=== PATIENT | female | born 1990 | race Caucasian/White ===

== ENCOUNTER 2018-07-18 16:29 | Inpatient (IN) | payer BC ==
[2018-07-18] MEDS ORDERED: Sodium Chloride 0.9% 10 ML Syringe FLUSH PRN (18:08)
[2018-07-18] MEDS ORDERED: Acetaminophen 325 MG Tab PO PRN (18:08)
[2018-07-18] MEDS ORDERED: Nalbuphine 20 MG/ML 1 ML Syringe IVPUSH PRN (18:08)
[2018-07-18] MEDS ORDERED: Oxytocin/Lactated Ringers 10 UNIT/1,000 ML BAG IV SCH ×2 (18:15)
--- NOTE | 2018-07-18 18:21 | PCM.LDHP ---
L&D History of Present Illness - General Date of Service: 07/18/18 Admit Problem/Dx: Patient Status Order with Admit Dx/Problem 07/18/18 18:08 Patient Status [ADT] Routine Admission Diagnosis/Problem Admission Diagnosis/Problem Placental abruption in third trimester Source of Information: Patient History Limitations: Reports: No Limitations - History of Present Illness Introduction:: Eden Glasgow is a 27-year-old at 38 weeks 4 days by LMP consistent with 13 week ultrasound ([facility] 07/28/2018) who presents for medical induction of labor in the setting of small placental abruption with reassuring monitoring. Patient was seen in the clinic today after she had vaginal bleeding after sexual intercourse last evening. Reports that she had moderate amount of clots at that time and then today has had continuous spotting. She was seen in the emergency department last night and was told that everything was okay for the and had her cervix checked by the provider and was told that she was 2 cm. She reports that today she has had continued spotting without any abdominal pain or cramping. She reports that she did have some increased amount of mucus and tissue that was passed with the bleeding as well. She reports that she has had decreased movement last night but has had good movement today. On exam in the office she was 4/80/-2/soft/anterior with what felt like intact membranes. Timing/Duration: Reports: sudden onset (vaginal bleeding), constant/continuous ( since starting of bleeding) Location, : Reports: Pelvic, Uterus Quality: Reports: Pressure Severity: Moderate Improves with: Reports: None Worsens with: Reports: None Associated Symptoms: Reports: vaginal bleeding, vaginal tissue, moderate amount. Denies: vaginal discharge, vaginal fluid Present Illness Comments:: Eden Cameron is a 27-year-old at 38 weeks 4 days by LMP consistent with 13 week ultrasound presenting for induction of labor in the setting of asymptomatic placental abruption with small amount of bleeding and reassuring monitoring. She has had routine care throughout the initially with myself but then transferred care to [place] for several months but then returned to my care and had regular care since transfer at 27 weeks gestational age. Her had overall been uncomplicated until last evening and into today when she had vaginal bleeding after intercourse. She received the flu shot on 04/30/2018 and TDaP on 04/30/2018. labs Blood type: A+ Antibody screen: Negative First trimester hematocrit/hemoglobin: 35.7%/12.6 Platelets: 231 Rubella status: Immune Hepatitis B surface antigen: Negative RPR: Negative HIV: Negative Gonorrhea: Negative Chlamydia: Negative Anatomy ultrasound: Normal anatomy ultrasound, anterior placenta, no previa One hour glucose tolerance test: 95 Second trimester hematocrit/hemoglobin: 36.8%/12.6 Platelets: 242 GBS status: Negative This has been complicated by: * Asymptomatic placental abruption at 38 weeks following intercourse. Infant with reassuring and reactive monitoring in clinic and decision made to proceed with induction due to remote residence from facility and small amount of continued bleeding * Lives remote from facility in [place] Past Medical History - Past Surgical History HEENT Surgical History: Reports: Naso-Sinus Surgery (septum repair), Tonsillectomy Female Surgical History: Reports: Breast Implant Social & Family History - Tobacco Use Smoking Status *Q: Never Smoker Tobacco Use Within Last Twelve Months: No - Tobacco Core Measures Tobacco Use/Smoking Within Last 30 Days: No Smokeless Tobacco Use in Last 30 Days: No - Alcohol Use Alcohol Use History: No - Recreational Drug Use Recreational Drug Use: No Drug Use in Last 12 Months: No - Living Situation & Occupation Living situation: Reports: Single, with Significant Other H&P Review of Systems - Review of Systems: Review Of Systems: See Below General: Denies: Fever, Chills, Malaise, Fatigue HEENT: Reports: Glasses. Denies: Rhinitis, Post Nasal Drip, Sinus Congestion, Sore Throat, Visual Changes Pulmonary: Denies: Shortness of Breath, Wheezing, Cough Cardiovascular: Denies: Chest Pain, Palpitations, Dyspnea on Exertion Gastrointestinal: Denies: Abdominal Pain, Constipation, Diarrhea, Nausea, Vomiting Genitourinary: Reports: Other (vaginal bleeding). Denies: Dysuria, Frequency, Burning, Pain, Urgency Musculoskeletal: Reports: Back Pain (and hip pain of ) Skin: Denies: Rash, Lesions Psychiatric: Denies: Depression, Anxiety Neurological: Denies: Headache Hematologic/Lymphatic: Denies: Anemia L&D Exam - Exam Exam: See Below - OB Specific Contraction Duration (sec): 60-90 Contraction Frequency (min): 4-9 Contraction Intensity: Moderate Movement: Active Heart Tones: Present Heart Tones per Min: 140 (+15 x 15 accelerations, occasional variable decelerations) Heart Rate (FHR) Variability: Moderate (6-25 bmp) Presentation: Vertex Estimated Weight: 7-7.5 pounds by Sarbjit's - Jenkins Score Jenkins Score Cervix Position: Anterior Jenkins Score Consistency: Soft Jenkins Score Effacement: >80% (80%) Jenkins Score Dilation: 3-4 cm (4 cm) Jenkins Score Infant's Station: -2 Jenkins Score Total: 10 - Exam General: Alert, Oriented HEENT: Conjunctiva Clear, EOMI Neck: Supple, Trachea Midline Lungs: Clear to Auscultation, Normal Respiratory Effort Cardiovascular: Regular Rate, Regular Rhythm GI/Abdominal Exam: Soft, Non-Tender, No Distention, Other (Gravid). No: Guarding, Rigid, Rebound Genitourinary: Normal external exam, Vaginal bleeding (With small amount of blood clot in the vaginal vault coming from the cervical os, small amount of bright red bleeding from cervix with Valsalva) Back Exam: Normal Inspection, Full Range of Motion Extremities: Normal Inspection, Pedal Edema (1+) Skin: Warm, Dry, Intact Psychiatric: Alert, Normal Affect, Normal Mood - Problem List (1) 38 weeks gestation of SNOMED Code(s): 56381643 ICD Code: Z3A.38 - 38 WEEKS GESTATION OF Status: Acute Current Visit: Yes (2) Placental abruption SNOMED Code(s): 768315123 ICD Code: O45.90 - PREMATURE SEPARATION OF PLACENTA, UNSP, UNSP TRIMESTER Status: Acute Current Visit: Yes Problem List Initiated/Reviewed/Updated: Yes Orders Last 24hrs: Active Orders 24 hr Category Date Time Status Patient Status [ADT] Routine ADT 07/18/18 18:08 Ordered Activity as Tolerated [RC] PFP Care 07/18/18 18:08 Ordered Communication Order [RC] ASDIRECTED Care 07/18/18 18:08 Ordered Heart Tones [RC] ASDIRECTED Care 07/18/18 18:10 Ordered Non Stress Test [RC] PER UNIT ROUTINE Care 07/18/18 18:08 Ordered Notify Provider Vital Signs [RC] PRN Care 07/18/18 18:10 Ordered Notify Provider [RC] PFP Care 07/18/18 18:08 Ordered Notify Provider [RC] PRN Care 07/18/18 18:08 Ordered Peripheral IV Care [RC] . DIRECTED Care 07/18/18 18:10 Ordered Pump Management, Intrathecal [RC] ASDIRECTED Care 07/18/18 18:10 Ordered Vital Signs [RC] PER UNIT ROUTINE Care 07/18/18 18:08 Ordered Regular Diet [DIET] Diet 07/18/18 Dinner Ordered CBC WITH AUTO DIFF [HEME] Routine Lab 07/18/18 18:08 Ordered RAPID PLASMA REAGIN,RPR [CHEM] Routine Lab 07/18/18 18:08 Ordered TYPE AND SCREEN [BBK] Routine Lab 07/18/18 18:08 Ordered Acetaminophen [Tylenol] Med 07/18/18 18:08 Ordered 650 mg PO Q6H PRN Lactated Ringers [Ringers, Lactated] 1,000 ml Med 07/18/18 18:15 Ordered IV ASDIRECTED Nalbuphine [Nubain] Med 07/18/18 18:08 Ordered 10 mg IVPUSH Q2H PRN Oxytocin/Lactated Ringers [Pitocin in LR 10 Units/1,000 Med 07/18/18 18:15 Ordered ML] 10 unit in 1,000 ml IV .CONTINUOUS Oxytocin/Lactated Ringers [Pitocin in LR 10 Units/1,000 Med 07/18/18 18:15 Ordered ML] 10 unit in 1,000 ml IV TITRATE Sodium Chloride 0.9% [Saline Flush] Med 07/18/18 18:08 Ordered 10 ml FLUSH ASDIRECTED PRN Electronic Heart Tones Ext w TOCO [WOMSER] Oth 07/18/18 18:08 Ordered Routine Electronic Heart Tones Internal [WOMSER] Per Unit Oth 07/18/18 18:08 Ordered Routine Peripheral IV Insertion Adult [OM.PC] Routine Oth 07/18/18 18:08 Ordered Resuscitation Status Routine Resus Stat 07/18/18 18:08 Ordered Assessment/Plan Comment:: Refer to observation for induction of labor in the setting of small placental abruption with living remote from facility Start Pitocin for induction of labor Continuous monitoring Place IV and have Lactated Ringer's at 125 ml/hr May have small amounts of regular diet Activity as tolerated May have epidural as desired Plans to breast-feed after delivery CBC, RPR and type and screen. Type and screen for precaution due to increased risk for need for section. Anticipate vaginal delivery unless otherwise indicated Gerson Ledezma M.D. 6:28 PM 07/18/2018
[2018-07-18] MEDS: Lactated Ringers 1,000 ML IV SCH (20:45)
[2018-07-18] MEDS ORDERED: Oxytocin/Lactated Ringers 10 UNIT/1,000 ML BAG IV ONE (21:28)
--- NOTE | 2018-07-18 23:34 | PCM.PNLD ---
Labor Progress Note - VS & Meds Active Medications: Current Medications Acetaminophen (Tylenol) 650 mg PO Q6H PRN PRN Reason: Pain (Mild 1-3) and fever Lactated Ringer's (Ringers, Lactated) 1,000 mls @ 100 mls/hr IV ASDIRECTED TK Last Admin: 07/18/18 20:45 Dose: 100 mls/hr Oxytocin/Lactated Ringer's (Pitocin In Lr 10 Units/1,000 Ml) 10 unit in 1,000 mls @ 12 mls/hr IV TITRATE TK; Protocol Last Titration: 07/18/18 22:20 Dose: 4 munits/min, 24 mls/hr Oxytocin/Lactated Ringer's (Pitocin In Lr 10 Units/1,000 Ml) 10 unit in 1,000 mls @ 100 mls/hr IV .CONTINUOUS TK; Protocol Nalbuphine HCl (Nubain) 10 mg IVPUSH Q2H PRN PRN Reason: pain Sodium Chloride (Saline Flush) 10 ml FLUSH ASDIRECTED PRN PRN Reason: Keep Vein Open Discontinued Medications Oxytocin/Lactated Ringer's (Pitocin In Lr 10 Units/1,000 Ml) Confirm Administered Dose 10 unit in 1,000 mls @ as directed IV .STK-MED ONE Stop: 07/18/18 21:29 Last Admin: 07/18/18 22:44 Dose: Not Given - Uterine Contractions Uterine Monitoring Mode: External Cantril Contraction Frequency (min): 3-5 Contraction Duration (sec): 60-90 Contraction Intensity: Moderate to Strong Uterine Resting Tone: Soft - Monitoring Monitor Mode: Doppler/Auscultation Heart Rate (FHR) Baseline: 135 Heart Rate (FHR) Per Doppler: 135 Heart Rate (FHR) Variability: Moderate (6-25 bmp) Accelerations: Present, 15x15 Decelerations: None Strip Review: Category I - Vaginal Exam Dilation (cm): 4.5 Effacement (Percent): 90 Station: -2 Cervical Position: Anterior Sterile Vaginal Exam Performed By: Gerson Ledezma Vaginal Exam Comment: Artificial rupture of membranes with return of clear fluid mixed with old clot performed with [place]. Mother and tolerated without complications. No additional vaginal bleeding after rupture of membranes. - Labor Progress (Free Text) Labor Progress: Patient progressing after initiation of pitocin for induction of labor. Continue pitocin for induction of labor Monitor vitals Monitor of vaginal bleeding for worsening of suspected placental abruption Patient may have epidural for anesthesia if desired. Anticipate vaginal delivery unless otherwise indicated Gerson Ledezma MD 11:33 PM 07/18/2018
[2018-07-18] MEDS ORDERED: fentaNYL/Bupivacaine-NS 2 MCG/ML-0.125%/PF 100 ML Bag EP SCH (23:45)
[2018-07-18] MEDS ORDERED: fentaNYL 100 MCG/2 ML SDV EPIDUR PRN (23:56)
[2018-07-18] MEDS ORDERED: Ondansetron 4 MG/2 ML SDV IVPUSH PRN (23:56)
[2018-07-18] MEDS ORDERED: diphenhydrAMINE 50 MG/ML SDV IVPUSH PRN (23:56)
[2018-07-18] MEDS ORDERED: ePHEDrine 50 MG/ML SDV IVPUSH PRN (23:56)
[2018-07-19] MEDS: Lactated Ringers 1,000 ML IV SCH (00:03)
--- NOTE | 2018-07-19 00:44 | PCM.PREANE ---
Preanesthetic Assessment - Anesthesia/Transfusion/Family Hx Anesthesia History: Prior Anesthesia Without Reaction Family History of Anesthesia Reaction: No - Review of Systems General: No Symptoms Pulmonary: No Symptoms Cardiovascular: No Symptoms Gastrointestinal: Other (Heart Burn during ) Neurological: No Symptoms Other: Reports: None - Physical Assessment O2 Sat by Pulse Oximetry: 98 Respiratory Rate: 18 Blood Pressure: 111/84 Temperature: 37.1 C Height: 1.6 m Weight: 94.347 kg ASA Class: 2 Mental Status: Alert & Oriented x3 Airway Class: Mallampati = 1 Dentition: Reports: Normal Dentition Thyro-Mental Finger Breadths: 3 Mouth Opening Finger Breadths: 3 ROM/Head Extension: Full Lungs: Clear to Auscultation, Normal Respiratory Effort Cardiovascular: Regular Rate, Regular Rhythm - Lab Values: Laboratory Last Values WBC 11.36 K/mm3 (3.98-10.04) H 07/18/18 18:35 RBC 4.03 M/mm3 (3.98-5.22) 07/18/18 18:35 Hgb 12.7 gm/L (11.2-15.7) 07/18/18 18:35 Hct 37.9 % (34.1-44.9) 07/18/18 18:35 MCV 94.0 fl (79.4-94.8) 07/18/18 18:35 MCH 31.5 pg (25.6-32.2) 07/18/18 18:35 MCHC 33.5 g/dl (32.2-35.5) 07/18/18 18:35 RDW Std Deviation 45.7 fL (36.4-46.3) 07/18/18 18:35 Plt Count 205 K/mm3 (182-369) 07/18/18 18:35 MPV 9.9 fl (9.4-12.3) 07/18/18 18:35 Neut % (Auto) 61.8 % (34.0-71.1) 07/18/18 18:35 Lymph % (Auto) 24.6 % (19.3-51.7) 07/18/18 18:35 Stokes % (Auto) 11.9 % (4.7-12.5) 07/18/18 18:35 Eos % (Auto) 0.6 (0.7-5.8) L 07/18/18 18:35 Baso % (Auto) 0.1 % (0.1-1.2) 07/18/18 18:35 Neut # (Auto) 7.02 K/mm3 (1.56-6.13) H 07/18/18 18:35 Lymph # (Auto) 2.80 K/mm3 (1.18-3.74) 07/18/18 18:35 Stokes # (Auto) 1.35 K/mm3 (0.24-0.36) H 07/18/18 18:35 Eos # (Auto) 0.07 K/mm3 (0.04-0.36) 07/18/18 18:35 Baso # (Auto) 0.01 K/mm3 (0.01-0.08) 07/18/18 18:35 Manual Slide Review Normal smear 07/18/18 18:35 RPR Non-reactive (NONREACTIVE) 07/18/18 18:35 Blood Type A POSITIVE 07/18/18 18:35 Gel Antibody Screen Negative 07/18/18 18:35 - Allergies Allergies/Adverse Reactions: Allergies Allergy/AdvReac Type Severity Reaction Status Date / Time Penicillins Allergy Anaphylactic Verified 07/18/18 21:18 Shock - Acknowledgements Anesthesia Type Planned: Epidural Pt an Appropriate Candidate for the Planned Anesthesia: Yes Alternatives and Risks of Anesthesia Discussed w Pt/Guardian: Yes Pt/Guardian Understands and Agrees with Anesthesia Plan: Yes PreAnesthesia Questionnaire - Past Surgical History HEENT Surgical History: Reports: Naso-Sinus Surgery (septum repair), Tonsillectomy Female Surgical History: Reports: Breast Implant - SUBSTANCE USE Smoking Status *Q: Never Smoker Tobacco Use Within Last Twelve Months: No Recreational Drug Use History: No - CURRENT (IN HOUSE) MEDS Current Meds: Current Medications Acetaminophen (Tylenol) 650 mg PO Q6H PRN PRN Reason: Pain (Mild 1-3) and fever Diphenhydramine HCl (Benadryl) 25 mg IVPUSH Q6H PRN PRN Reason: Pruritis Ephedrine Sulfate (Ephedrine Sulfate) 5 mg IVPUSH ASDIRECTED PRN PRN Reason: Hypotension Fentanyl (Sublimaze) 100 mcg EPIDUR ONETIME PRN PRN Reason: Pain Last Admin: 07/19/18 00:39 Dose: 100 mcg Fentanyl/Bupivacaine HCl (Oiaqfxpn-Hvpjg-Gz 2 Mcg/Ml-0.125%) 100 ml EP ASDIRECTED TK Last Admin: 07/19/18 00:38 Dose: 100 ml Lactated Ringer's (Ringers, Lactated) 1,000 mls @ 100 mls/hr IV ASDIRECTED TK Last Admin: 07/19/18 00:03 Dose: 999 mls/hr Oxytocin/Lactated Ringer's (Pitocin In Lr 10 Units/1,000 Ml) 10 unit in 1,000 mls @ 12 mls/hr IV TITRATE TK; Protocol Last Titration: 07/18/18 23:59 Dose: 0 munits/min, 0 mls/hr Oxytocin/Lactated Ringer's (Pitocin In Lr 10 Units/1,000 Ml) 10 unit in 1,000 mls @ 100 mls/hr IV .CONTINUOUS TK; Protocol Nalbuphine HCl (Nubain) 10 mg IVPUSH Q2H PRN PRN Reason: pain Ondansetron HCl (Zofran) 4 mg IVPUSH ONETIME PRN PRN Reason: Nausea/Vomiting Sodium Chloride (Saline Flush) 10 ml FLUSH ASDIRECTED PRN PRN Reason: Keep Vein Open Discontinued Medications Oxytocin/Lactated Ringer's (Pitocin In Lr 10 Units/1,000 Ml) Confirm Administered Dose 10 unit in 1,000 mls @ as directed IV .STK-MED ONE Stop: 07/18/18 21:29 Last Admin: 07/18/18 22:44 Dose: Not Given
[2018-07-19] MEDS ORDERED: Lidocaine 1.5% with EPINEPHrine 1:200,000 5 ML Amp ONE (02:00)
[2018-07-19] MEDS ORDERED: Bupivacaine 0.25% 10 ML SDV ONE (02:00)
[2018-07-19] MEDS ORDERED: Lidocaine 1% 50 ML MDV ONE (03:37)
--- NOTE | 2018-07-19 04:17 | PCM.DEL ---
L & D Note - General Info Date of Service: 07/19/18 Mother's Due Date: 07/28/18 - Delivery Note Labor: Augmented by ARM, Induced by Oxytocin Cervical Ripening Method: Oxytocin Delivery Outcome: Livebirth Delivery Method: Spontaneous Vaginal Delivery-Single Presentation: Left Occiput Anterior (SABINO) Nuchal Cord: Present (not reduced, delivered through) Anesthesia Type: Epidural, Local Anesthetic: Lidocaine (Xylocaine) 1% Plain Amniotic Fluid Description: Clear Episiotomy Type: None Laceration: 1st Degree (midline perineal and bilateral labial, repaired with 4- 0 vicryl) Suture type: Vicryl Suture size: 4-0 Placenta: Intact (small amount of peripheral abruption noted), Spontaneous Cord: 3 Vessels Estimated Blood Loss: 250 Resuscitation Needed: Yes : Bulb Syringe, Stimulated, Warmed, [place] Used Provider: Gerson Ledezma Score 1 min: 8 Score 5 min: 9 Second Stage Interventions: Reports: Pushing Effectively, Pushing, Pulls Own Legs Back Delivery Comments (Free Text/Narrative):: Stage I: Eden Glasgow was admitted for induction of labor secondary to suspected small placental abruption with small amount of blood clot noted on exam and small amount of bleeding and dilation to 4 cm in the clinic. She was GBS negative. She had artificial rupture membranes with clear fluid She was started on Pitocin for induction of labor. She was given an epidural for anesthesia. The Pitocin was able to be stopped after she received the epidural as she was having regular contractions without it. She progressed to complete and pushing. Stage II: On 07/19/2018 she had a normal vaginal delivery of a live male at 0322. Apgars of 8 & 9. Weight of 3070 g (6 lbs 12.3 oz). Length of 20 inches. There was a single nuchal cord that was not reduced and delivered through. was delivered in SABINO position. The cord was doubly clamped and cut by CASANDRA Becerra student. was placed on mother's abdomen. Stage III: She had a spontaneous delivery of an intact placenta in [place] presentation. On examination of the placenta there was noted to be a small peripheral abruption approximately 10-15% of the placental edge. Three vessel cord. She was given pitocin and fundal massage. She had a first-degree midline perineal laceration that was repaired with 4-0 Vicryl. She also had a first- degree bilateral labial lacerations that were repaired with 4-0 Vicryl. Mom and baby were stable to recovery. EBL of 250 mL. Gerson Ledezma MD 4:09 AM 07/19/2018 Induction Criteria - Jenkins Score Jenkins Score Dilation: 3-4 cm Jenkins Score Effacement: >80% Jenkins Score 's Station: -2 Jenkins Score Consistency: Soft Jenkins Score Cervix Position: Anterior Jenkins Score Total: 10 Jenkins Score Presenting Part: Reports: Cephalic - Induction Gestational Age >/= 39 wks: No Medical Indication: Suspected placental abruption with bleeding and clot noted on exam in the clinic Estimated Pelvis: Reports: Adequate Reassuring Monitoring Strip: Yes Absence of Tachy Systole: Yes - Augmentation Estimated Pelvis: Reports: Adequate Weight Estimated:: Reports: AGA Reassuring Monitoring Strip: Yes Absence of Tachy Systole: Yes - General Info Date of Service: 07/19/18 - Patient Data Vitals - Most Recent: Last Vital Signs Temp 37.1 C 07/19/18 00:44 Pulse 86 07/18/18 18:08 Resp 18 07/19/18 00:44 BP 111/84 07/19/18 00:44 Pulse Ox 98 07/19/18 00:44 Weight - Most Recent: 94.347 kg I&O - Last 24 Hours: Intake & Output 07/18/18 07/18/18 07/19/18 14:59 22:59 06:59 Intake Total 3300 Output Total 300 Balance 3000 Lab Results Last 24 Hours: Laboratory Results - last 24 hr 07/18/18 07/18/18 07/18/18 Range/Units 18:35 18:35 18:35 WBC 11.36 H (3.98-10.04) K/mm3 RBC 4.03 (3.98-5.22) M/mm3 Hgb 12.7 (11.2-15.7) gm/L Hct 37.9 (34.1-44.9) % MCV 94.0 (79.4-94.8) fl MCH 31.5 (25.6-32.2) pg MCHC 33.5 (32.2-35.5) g/dl RDW Std Deviation 45.7 (36.4-46.3) fL Plt Count 205 (182-369) K/mm3 MPV 9.9 (9.4-12.3) fl Neut % (Auto) 61.8 (34.0-71.1) % Lymph % (Auto) 24.6 (19.3-51.7) % [place] % (Auto) 11.9 (4.7-12.5) % Eos % (Auto) 0.6 L (0.7-5.8) Baso % (Auto) 0.1 (0.1-1.2) % Neut # (Auto) 7.02 H (1.56-6.13) K/mm3 Lymph # (Auto) 2.80 (1.18-3.74) K/mm3 [place] # (Auto) 1.35 H (0.24-0.36) K/mm3 Eos # (Auto) 0.07 (0.04-0.36) K/mm3 Baso # (Auto) 0.01 (0.01-0.08) K/mm3 Manual Slide Review Normal smear RPR Non-reactive (NONREACTIVE) Blood Type A POSITIVE Gel Antibody Screen Negative Med Orders - Current: Current Medications Acetaminophen (Tylenol) 650 mg PO Q6H PRN PRN Reason: Pain (Mild 1-3) and fever Diphenhydramine HCl (Benadryl) 25 mg IVPUSH Q6H PRN PRN Reason: Pruritis Ephedrine Sulfate (Ephedrine Sulfate) 5 mg IVPUSH ASDIRECTED PRN PRN Reason: Hypotension Fentanyl (Sublimaze) 100 mcg EPIDUR ONETIME PRN PRN Reason: Pain Last Admin: 07/19/18 00:39 Dose: 100 mcg Fentanyl/Bupivacaine HCl (Abguaypk-Gryjq-Ms 2 Mcg/Ml-0.125%) 100 ml EP ASDIRECTED TK Last Admin: 07/19/18 00:38 Dose: 100 ml Lactated Ringer's (Ringers, Lactated) 1,000 mls @ 100 mls/hr IV ASDIRECTED TK Last Admin: 07/19/18 00:03 Dose: 999 mls/hr Oxytocin/Lactated Ringer's (Pitocin In Lr 10 Units/1,000 Ml) 10 unit in 1,000 mls @ 12 mls/hr IV TITRATE TK; Protocol Last Titration: 07/18/18 23:59 Dose: 0 munits/min, 0 mls/hr Oxytocin/Lactated Ringer's (Pitocin In Lr 10 Units/1,000 Ml) 10 unit in 1,000 mls @ 100 mls/hr IV .CONTINUOUS TK; Protocol Nalbuphine HCl (Nubain) 10 mg IVPUSH Q2H PRN PRN Reason: pain Ondansetron HCl (Zofran) 4 mg IVPUSH ONETIME PRN PRN Reason: Nausea/Vomiting Sodium Chloride (Saline Flush) 10 ml FLUSH ASDIRECTED PRN PRN Reason: Keep Vein Open Discontinued Medications Oxytocin/Lactated Ringer's (Pitocin In Lr 10 Units/1,000 Ml) Confirm Administered Dose 10 unit in 1,000 mls @ as directed IV .STK-MED ONE Stop: 07/18/18 21:29 Last Admin: 07/18/18 22:44 Dose: Not Given Lidocaine HCl (Xylocaine 1%) Confirm Administered Dose 50 ml .ROUTE .STK-MED ONE Stop: 07/19/18 03:38 - Problem List & Annotations (1) 38 weeks gestation of SNOMED Code(s): 73250594 Code(s): Z3A.38 - 38 WEEKS GESTATION OF Status: Acute Current Visit: Yes (2) Placental abruption SNOMED Code(s): 718314251 Code(s): O45.90 - PREMATURE SEPARATION OF PLACENTA, UNSP, UNSP TRIMESTER Status: Acute Current Visit: Yes (3) Vaginal delivery SNOMED Code(s): 261162770 Code(s): O80 - ENCOUNTER FOR FULL-TERM UNCOMPLICATED DELIVERY Status: Acute Current Visit: Yes (4) First degree perineal laceration during delivery SNOMED Code(s): 511916433 Code(s): O70.0 - FIRST DEGREE PERINEAL LACERATION DURING DELIVERY Status: Acute Current Visit: Yes - Problem List Review Problem List Initiated/Reviewed/Updated: Yes - My Orders Last 24 Hours: My Active Orders 07/18/18 18:08 Patient Status [ADT] Routine Activity as Tolerated [RC] PFP Communication Order [RC] ASDIRECTED Notify Provider [RC] PFP Notify Provider [RC] PRN Vital Signs [RC] 09,15,21,03 Acetaminophen [Tylenol] 650 mg PO Q6H PRN Nalbuphine [Nubain] 10 mg IVPUSH Q2H PRN Sodium Chloride 0.9% [Saline Flush] 10 ml FLUSH ASDIRECTED PRN Electronic Heart Tones Ext w TOCO [WOMSER] Routine Electronic Heart Tones Internal [WOMSER] Per Unit Routine Peripheral IV Insertion Adult [OM.PC] Routine Resuscitation Status Routine 07/18/18 18:10 Heart Tones [RC] ASDIRECTED Notify Provider Vital Signs [RC] PRN Peripheral IV Care [RC] . DIRECTED 07/18/18 18:15 Lactated Ringers [Ringers, Lactated] 1,000 ml IV ASDIRECTED Oxytocin/Lactated Ringers [Pitocin in LR 10 Units/1,000 ML] 10 unit in 1,000 ml IV .CONTINUOUS Oxytocin/Lactated Ringers [Pitocin in LR 10 Units/1,000 ML] 10 unit in 1,000 ml IV TITRATE 07/18/18 Dinner Regular Diet [DIET] 07/19/18 04:10 Patient Status Manage Transfer [TRANSFER] Routine - Plan Plan:: Admit to inpatient following normal spontaneous vaginal delivery Continue Pitocin per unit protocol following delivery of placenta and lactated Ringer's until tolerating regular diet Regular diet Vitals per unit routine Ibuprofen and Tylenol for pain control Assist with breast-feeding as needed Continue to monitor lochia Anticipate discharge home on day #1 or #2 Gerson Ledezma MD 4:09 AM 07/19/2018
[2018-07-19] MEDS ORDERED: Lanolin 100% Cream 7 GM Tube TOP PRN (04:46)
[2018-07-19] MEDS ORDERED: Acetaminophen 325 MG Tab PO PRN (04:46)
[2018-07-19] MEDS ORDERED: Oxytocin/Lactated Ringers 10 UNIT/1,000 ML BAG IV SCH (04:46)
[2018-07-19] MEDS ORDERED: Benzocaine/Menthol 20%-0.5% Spray 56 GM Canister TOP PRN (04:46)
[2018-07-19] MEDS ORDERED: Magnesium Hydroxide 400 MG/5 ML Susp 30 ML Cup PO PRN (04:46)
[2018-07-19] MEDS ORDERED: Ibuprofen 600 MG Tab PO PRN (04:46)
[2018-07-19] MEDS ORDERED: Hydrocortisone Acetate 25 MG Supp RECTAL PRN (04:46)
[2018-07-19] MEDS ORDERED: Witch Hazel Medicated Pads 100/Jar TOP PRN (04:46)
[2018-07-19] MEDS ORDERED: Docusate Sodium 100 MG Cap PO PRN (04:46)
--- NOTE | 2018-07-19 08:14 | PCM48HPAN ---
Post Anesthesia Note - EVALUATION WITHIN 48HRS OF ANESTHETIC Vital Signs in Normal Range: Yes Patient Participated in Evaluation: Yes Respiratory Function Stable: Yes Airway Patent: Yes Cardiovascular Function Stable: Yes Hydration Status Stable: Yes Pain Control Satisfactory: Yes Nausea and Vomiting Control Satisfactory: Yes Mental Status Recovered: Yes Resp Rate: 18 Temperature: 98.7 F Blood Pressure: 111/84
[2018-07-19] MEDS: Prenatal Multivitamin with Calcium/Folic Acid/Iron Tab PO SCH (09:49)
--- NOTE | 2018-07-20 06:54 | PCM.SN ---
- Free Text/Narrative Note: Post Progress Note PPD # 1 Subjective: Doing well overall. Ambulating without difficulty. Lochia minimal. Voiding without difficulty. Tolerating regular diet without nausea or vomiting. Pain controlled with oral medications. Breast-feeding with minimal difficulty. Objective: Vitals: Vital Signs - 24 hr 07/19/18 07/19/18 07/19/18 08:14 09:14 15:32 Temperature 37.1 C 36.4 C 36.5 C Pulse, 82 81 Peripheral Respiratory 18 14 14 Rate Blood Pressure 111/84 131/65 115/67 O2 Sat by Pulse 100 98 Oximetry 07/19/18 07/20/18 20:31 04:40 Temperature 36.9 C 36.3 C Pulse, 93 75 Peripheral Respiratory 16 16 Rate Blood Pressure 116/81 121/72 O2 Sat by Pulse 100 96 Oximetry Physical Exam General: Alert and oriented, no acute distress Lungs: Clear to auscultation bilaterally Heart: Regular rate and rhythm Abdomen: Soft, minimal appropriate tenderness, non-distended, fundus midline, nontender, and one finger breadth below the umbilicus Extremities: Trace edema in bilateral lower extremities to mid shins ASSESSMENT: 27-year-old female 001 s/p normal vaginal delivery PPD #1, complicated by asymptomatic partial placental abruption at 38 weeks gestational age and lives remote from facility in [place] PLAN: Doing well Breast-feeding with minimal difficulty. Assist as needed Lochia minimal. Continue to monitor for appropriate lochia. Continue routine care Anticipate discharge home today if infant cleared for discharge Gerson Ledezma MD 6:53 AM 07/20/2018
--- NOTE | 2018-07-20 06:57 | PCM.DCSUM1 ---
Discharge Summary - Hospital Course Free Text/Narrative:: - General Info Date of Service: 07/19/18 Mother's Due Date: 07/28/18 - Delivery Note Labor: Augmented by ARM, Induced by Oxytocin Cervical Ripening Method: Oxytocin Delivery Outcome: Livebirth Infant Delivery Method: Spontaneous Vaginal Delivery-Single Presentation: Left Occiput Anterior (SABINO) Nuchal Cord: Present (not reduced, delivered through) Anesthesia Type: Epidural, Local Anesthetic: Lidocaine (Xylocaine) 1% Plain Amniotic Fluid Description: Clear Episiotomy Type: None Laceration: 1st Degree (midline perineal and bilateral labial, repaired with 4- 0 vicryl) Suture type: Vicryl Suture size: 4-0 Placenta: Intact (small amount of peripheral abruption noted), Spontaneous Cord: 3 Vessels Estimated Blood Loss: 250 Resuscitation Needed: Yes : Bulb Syringe, Stimulated, Warmed, Carson Used Provider: Gerson Ledezma Score 1 min: 8 Score 5 min: 9 Second Stage Interventions: Reports: Pushing Effectively, Pushing, Pulls Own Legs Back Delivery Comments (Free Text/Narrative):: Stage I: Eden Glasgow was admitted for induction of labor secondary to suspected small placental abruption with small amount of blood clot noted on exam and small amount of bleeding and dilation to 4 cm in the clinic. She was GBS negative. She had artificial rupture membranes with clear fluid She was started on Pitocin for induction of labor. She was given an epidural for anesthesia. The Pitocin was able to be stopped after she received the epidural as she was having regular contractions without it. She progressed to complete and pushing. Stage II: On 07/19/2018 she had a normal vaginal delivery of a live male at 0322. Apgars of 8 & 9. Weight of 3070 g (6 lbs 12.3 oz). Length of 20 inches. There was a single nuchal cord that was not reduced and delivered through. was delivered in SABINO position. The cord was doubly clamped and cut by CASANDRA Becerra student. was placed on mother's abdomen. Stage III: She had a spontaneous delivery of an intact placenta in [place] presentation. On examination of the placenta there was noted to be a small peripheral abruption approximately 10-15% of the placental edge. Three vessel cord. She was given pitocin and fundal massage. She had a first-degree midline perineal laceration that was repaired with 4-0 Vicryl. She also had a first- degree bilateral labial lacerations that were repaired with 4-0 Vicryl. Mom and baby were stable to recovery. EBL of 250 mL. HPI Initial Comments: - General Info Date of Service: 07/19/18 Mother's Due Date: 07/28/18 - Delivery Note Labor: Augmented by ARM, Induced by Oxytocin Cervical Ripening Method: Oxytocin Delivery Outcome: Livebirth Delivery Method: Spontaneous Vaginal Delivery-Single Presentation: Left Occiput Anterior (SABINO) Nuchal Cord: Present (not reduced, delivered through) Anesthesia Type: Epidural, Local Anesthetic: Lidocaine (Xylocaine) 1% Plain Amniotic Fluid Description: Clear Episiotomy Type: None Laceration: 1st Degree (midline perineal and bilateral labial, repaired with 4- 0 vicryl) Suture type: Vicryl Suture size: 4-0 Placenta: Intact (small amount of peripheral abruption noted), Spontaneous Cord: 3 Vessels Estimated Blood Loss: 250 Resuscitation Needed: Yes : Bulb Syringe, Stimulated, Warmed, Carson Used Provider: Gerson Ledezma Score 1 min: 8 Score 5 min: 9 Second Stage Interventions: Reports: Pushing Effectively, Pushing, Pulls Own Legs Back Delivery Comments (Free Text/Narrative):: Stage I: Eden Glasgow was admitted for induction of labor secondary to suspected small placental abruption with small amount of blood clot noted on exam and small amount of bleeding and dilation to 4 cm in the clinic. She was GBS negative. She had artificial rupture membranes with clear fluid She was started on Pitocin for induction of labor. She was given an epidural for anesthesia. The Pitocin was able to be stopped after she received the epidural as she was having regular contractions without it. She progressed to complete and pushing. Stage II: On 07/19/2018 she had a normal vaginal delivery of a live male at 0322. Apgars of 8 & 9. Weight of 3070 g (6 lbs 12.3 oz). Length of 20 inches. There was a single nuchal cord that was not reduced and delivered through. Infant was delivered in SABINO position. The cord was doubly clamped and cut by CASANDRA Becerra student. was placed on mother's abdomen. Stage III: She had a spontaneous delivery of an intact placenta in [place] presentation. On examination of the placenta there was noted to be a small peripheral abruption approximately 10-15% of the placental edge. Three vessel cord. She was given pitocin and fundal massage. She had a first-degree midline perineal laceration that was repaired with 4-0 Vicryl. She also had a first- degree bilateral labial lacerations that were repaired with 4-0 Vicryl. Mom and baby were stable to recovery. EBL of 250 mL. Brief History: - General Info. Date of Service: 07/19/18. Mother's Due Date: 07/28/18. - Delivery Note. Labor: Augmented by ARM, Induced by Oxytocin. Cervical Ripening Method: Oxytocin. Delivery Outcome: Livebirth. Delivery Method: Spontaneous Vaginal Delivery-Single. Presentation: Left Occiput Anterior (SABINO). Nuchal Cord: Present (not reduced, delivered through). Anesthesia Type: Epidural, Local. Anesthetic: Lidocaine (Xylocaine) 1% Plain. Amniotic Fluid Description: Clear. Episiotomy Type: None. Laceration: 1st Degree (midline perineal and bilateral labial, repaired with 4-0 vicryl). Suture type: Vicryl. Suture size: 4-0. Placenta: Intact (small amount of peripheral abruption noted), Spontaneous. Cord: 3 Vessels. Estimated Blood Loss: 250. Resuscitation Needed: Yes. : Bulb Syringe, Stimulated, Warmed, Carson Used. Provider: Gerson Ledezma. Score 1 min: 8. Score 5 min: 9. Second Stage Interventions: Reports: Pushing Effectively, Pushing, Pulls Own Legs Back. Delivery Comments (Free Text/ Narrative):: Stage I: Eden Glasgow was admitted for induction of labor secondary to suspected small placental abruption with small amount of blood clot noted on exam and small amount of bleeding and dilation to 4 cm in the clinic. She was GBS negative. She had artificial rupture membranes with clear fluid She was started on Pitocin for induction of labor. She was given an epidural for anesthesia. The Pitocin was able to be stopped after she received the epidural as she was having regular contractions without it. She progressed to complete and pushing. Stage II: On 07/19/2018 she had a normal vaginal delivery of a live male at 0322. Apgars of 8 & 9. Weight of 3070 g (6 lbs 12.3 oz). Length of 20 inches. There was a single nuchal cord that was not reduced and delivered through. Infant was delivered in SABINO position. The cord was doubly clamped and cut by CASANDRA Becerra student. was placed on mother's abdomen. Stage III: She had a spontaneous delivery of an intact placenta in [place] presentation. On examination of the placenta there was noted to be a small peripheral abruption approximately 10-15% of the placental edge. Three vessel cord. She was given pitocin and fundal massage. She had a first-degree midline perineal laceration that was repaired with 4-0 Vicryl. She also had a first-degree bilateral labial lacerations that were repaired with 4-0 Vicryl. Mom and baby were stable to recovery. EBL of 250 mL. Diagnosis: Stroke: No - Discharge Data Discharge Date: 07/20/18 Discharge Disposition: Home, Self-Care 01 Condition: Good - Discharge Diagnosis/Problem(s) (1) 38 weeks gestation of SNOMED Code(s): 25862140 ICD Code: Z3A.38 - 38 WEEKS GESTATION OF Status: Acute Current Visit: Yes (2) Placental abruption SNOMED Code(s): 568623586 ICD Code: O45.90 - PREMATURE SEPARATION OF PLACENTA, UNSP, UNSP TRIMESTER Status: Acute Current Visit: Yes (3) Vaginal delivery SNOMED Code(s): 799009761 ICD Code: O80 - ENCOUNTER FOR FULL-TERM UNCOMPLICATED DELIVERY Status: Acute Current Visit: Yes (4) First degree perineal laceration during delivery SNOMED Code(s): 793982282 ICD Code: O70.0 - FIRST DEGREE PERINEAL LACERATION DURING DELIVERY Status: Acute Current Visit: Yes - Patient Summary/Data Complications: None Consults: None Hospital Course: Eden Glasgow was admitted for induction of labor in the setting of asymptomatic partial placental abruption and advanced cervical dilation with 4 cm dilated and living remote from facility. On admission her cervix was dilated to 4 cm. She was GBS negative. She was given pitocin for augmentation. She had artificial rupture membranes with clear fluid. She was given an epidural for anesthesia. She progressed to complete and began pushing. On 07/19/2018 she had a normal vaginal delivery of a live male at 0322. Apgars of 8 and 9. Weight of 3070 g (6 pounds 12.3 ounces). Her course was uneventful. Her pain was well controlled and she had minimal lochia. She was ambulating, tolerating a regular diet and voiding normally. She was breast-feeding with minimal difficulty. She was afebrile and her hematocrit was 37.9 on admission. She desired to be discharged home on the afternoon of PPD #1. Her blood type is A+. - Patient Instructions Diet: Regular Diet as Tolerated Activity: Apply Ice, As Tolerated Activity, Other: Nothing in the vagina for 6 weeks Driving: May Drive Today Showering/Bathing: May Shower Notify Provider of: Fever, Increased Pain, Swelling and Redness, Drainage, Nausea and/or Vomiting Other/Special Instructions: Please contact your physician's office if you have heavy vaginal bleeding enough to soak a pad in less than an hour for several hours. Monitor for any signs of an infection in the breasts with severe pain or redness of the breast. - Discharge Plan *PRESCRIPTION DRUG MONITORING PROGRAM REVIEWED*: Not Applicable *COPY OF PRESCRIPTION DRUG MONITORING REPORT IN PATIENT BRII: Not Applicable Home Medications: Home Meds Acetaminophen [Tylenol] 650 mg PO Q6H PRN tablet 07/20/18 [Rx] Benzocaine/Menthol [Dermoplast Pain Relief [place]] 1 spray TOP ASDIRECTED PRN canister 07/20/18 [Rx] Docusate Sodium [Colace] 100 mg PO BID PRN cap 07/20/18 [Rx] Hydrocortisone Acetate [Anucort-HC] 25 mg RECTAL BID PRN supp 07/20/18 [Rx] Ibuprofen [Motrin] 600 mg PO Q6H PRN tablet 07/20/18 [Rx] Lanolin [Lansinoh HPA] 1 applic TOP ASDIRECTED PRN tube 07/20/18 [Rx] Vit with Ca/FA/Iron [ Plus Iron] 1 each PO DAILY tablet [Rx] Dorie Chavarriael [Tucks] 1 pad TOP ASDIRECTED PRN pad 07/20/18 [Rx] Patient Handouts: Vaginal Delivery, Care After, Care of a Perineal Tear Referrals: Gerson Ledezma MD [Physician] - (in 2 weeks) - Discharge Summary/Plan Comment DC Time >30 min.: No - Patient Data Vitals - Most Recent: Last Vital Signs Temp 36.3 C 07/20/18 04:40 Pulse 75 07/20/18 04:40 Resp 16 07/20/18 04:40 BP 121/72 07/20/18 04:40 Pulse Ox 96 07/20/18 04:40 Weight - Most Recent: 94.347 kg I&O - Last 24 hours: Intake & Output 07/19/18 07/19/18 07/20/18 14:59 22:59 06:59 Intake Total 120 Balance 120 Med Orders - Current: Current Medications Acetaminophen (Tylenol) 650 mg PO Q6H PRN PRN Reason: mild pain or fever Benzocaine/Menthol (Dermoplast Pain Relief [place]) 0 gm TOP ASDIRECTED PRN PRN Reason: Perineal Comfort Measure Docusate Sodium (Colace) 100 mg PO BID PRN PRN Reason: Constipation Emollient Ointment (Lansinoh Hpa) 0 gm TOP ASDIRECTED PRN PRN Reason: Sore Nipples Hydrocortisone Acetate (Anucort-Hc) 25 mg RECTAL BID PRN PRN Reason: Hemorrhoid pain Oxytocin/Lactated Ringer's (Pitocin In Lr 10 Units/1,000 Ml) 10 unit in 1,000 mls @ 100 mls/hr IV TITRATE TK; Protocol Ibuprofen (Motrin) 600 mg PO Q6H PRN PRN Reason: Mild pain or fever Last Admin: 07/20/18 00:24 Dose: 600 mg Magnesium Hydroxide (Milk Of Magnesia) 30 ml PO BEDTIME PRN PRN Reason: Constipation Prenat Multivit/Salvage Laborer/Iron/Folic Ac ( Plus Iron) 1 each PO DAILY TK Last Admin: 07/19/18 09:49 Dose: 1 each Witch Fani (Tucks) 1 pad TOP ASDIRECTED PRN PRN Reason: Hemorrhoid pain Discontinued Medications Acetaminophen (Tylenol) 650 mg PO Q6H PRN PRN Reason: Pain (Mild 1-3) and fever Bupivacaine HCl (Sensorcaine-Mpf 0.25%) 10 ml .ROUTE .STK-MED ONE Stop: 07/19/18 02:01 Diphenhydramine HCl (Benadryl) 25 mg IVPUSH Q6H PRN PRN Reason: Pruritis Ephedrine Sulfate (Ephedrine Sulfate) 5 mg IVPUSH ASDIRECTED PRN PRN Reason: Hypotension Fentanyl (Sublimaze) 100 mcg EPIDUR ONETIME PRN PRN Reason: Pain Last Admin: 07/19/18 00:39 Dose: 100 mcg Fentanyl/Bupivacaine HCl (Gpbzbwyv-Sfyuq-Rf 2 Mcg/Ml-0.125%) 100 ml EP ASDIRECTED TK Last Admin: 07/19/18 00:38 Dose: 100 ml Lactated Ringer's (Ringers, Lactated) 1,000 mls @ 100 mls/hr IV ASDIRECTED TK Last Admin: 07/19/18 00:03 Dose: 999 mls/hr Oxytocin/Lactated Ringer's (Pitocin In Lr 10 Units/1,000 Ml) 10 unit in 1,000 mls @ 12 mls/hr IV TITRATE TK; Protocol Last Titration: 07/19/18 03:25 Dose: 500 mls/hr Oxytocin/Lactated Ringer's (Pitocin In Lr 10 Units/1,000 Ml) 10 unit in 1,000 mls @ 100 mls/hr IV .CONTINUOUS TK; Protocol Oxytocin/Lactated Ringer's (Pitocin In Lr 10 Units/1,000 Ml) Confirm Administered Dose 10 unit in 1,000 mls @ as directed IV .STK-MED ONE Stop: 07/18/18 21:29 Last Admin: 07/18/18 22:44 Dose: Not Given Lidocaine HCl (Xylocaine 1%) Confirm Administered Dose 50 ml .ROUTE .STK-MED ONE Stop: 07/19/18 03:38 Lidocaine/Epinephrine (Xylocaine-Mpf 1.5% W/Epinephrine 1:200,000) 5 ml .ROUTE .STK-MED ONE Stop: 07/19/18 02:01 Nalbuphine HCl (Nubain) 10 mg IVPUSH Q2H PRN PRN Reason: pain Ondansetron HCl (Zofran) 4 mg IVPUSH ONETIME PRN PRN Reason: Nausea/Vomiting Sodium Chloride (Saline Flush) 10 ml FLUSH ASDIRECTED PRN PRN Reason: Keep Vein Open
[2018-07-20] MEDS: Prenatal Multivitamin with Calcium/Folic Acid/Iron Tab PO SCH (09:47)
== END 2018-07-20 14:50 | disposition home or self-care (01) | DRG 560 ==
LOC: JD.ED 16:29 → JD.OBCHECK 16:29 → JD.OB 18:08 → JD.MS 07-19 03:22 → OBSVTOIN 07-19 03:22 → JD.OB 07-19 09:09
PROVIDERS: ADMIT Obstetrics & Gynecology; ATTEND Obstetrics & Gynecology
PROC: 0HQ9XZZ Repair Perineum Skin, External Approach (ICD-10-PCS; principal; 2018-07-19)
PROC: 0UQMXZZ Repair Vulva, External Approach (ICD-10-PCS; principal; 2018-07-19)
PROC: 10907ZC Drainage of Amniotic Fluid, Therapeutic from Products of Conception, Via Natural or Artificial Opening (ICD-10-PCS; principal; 2018-07-19)
PROC: 3E033VJ Introduction of Other Hormone into Peripheral Vein, Percutaneous Approach (ICD-10-PCS; principal; 2018-07-19)
PROC: 10E0XZZ Delivery of Products of Conception, External Approach (ICD-10-PCS; principal; 2018-07-19)
PROC: 00HU33Z Insertion of Infusion Device into Spinal Canal, Percutaneous Approach (ICD-10-PCS; 2018-07-19)
PROC: 3E0R3BZ Introduction of Anesthetic Agent into Spinal Canal, Percutaneous Approach (ICD-10-PCS; 2018-07-19)
DX: O45.93 Premature separation of placenta, unspecified, third trimester (principal); O69.81X0 Labor and delivery complicated by cord around neck, without compression, not applicable or unspecified; O70.0 First degree perineal laceration during delivery; Z37.0 Single live birth; Z3A.38 38 weeks gestation of pregnancy; Z88.0 Allergy status to penicillin
CPT/HCPCS: 36415; 51702; 59025; 59409; 85025; 86592; 86850; 86900; 86901; A9270-GY; J2590; J3010; J3490; J7120